=== PATIENT | male | born 2000 | race Caucasian/White ===

== ENCOUNTER → 2018-12-30 | Outpatient (CLI) | payer OTHER | LOC: EDSEX 08:20 → CARD 08:20 | PROVIDERS: ATTEND Nurse Practitioner Family | DX: R07.9 Chest pain, unspecified (principal); R06.09 Other forms of dyspnea; R00.2 Palpitations; Q24.9 Congenital malformation of heart, unspecified | CPT/HCPCS: 93225; 93226; 93306; 93351 ==

== ENCOUNTER 2021-11-13 18:43 | Emergency (ER) | payer SELFPAY ==
[~2021-11-13] VITALS: Ht 167.7 cm; Wt 99.7 kg
--- NOTE | 2021-11-13 19:02 | ED Back Pain ---
General Chief Complaint: Back Problems Stated Complaint: GROIN / BACK PAIN Source of Information: Patient Exam Limitations: No Limitations History of Present Illness Date Seen by Provider: Nov 13, 2021 Time Seen by Provider: 19:01 Initial Comments Patient is a 21-year-old male who presents ED with scrotum and bilateral flank pain. Symptoms started in his left testicle 2 days ago. Radiating to left flank and right flank. Rating pain to right groin. Reports a sharp pain constant. Frequent urination without any dysuria, hematuria. No history of kidney stones. Denies of any current scrotum pain, scrotum swelling or redness. Denies history of similar symptoms. Denies any palpable bulge. Not currently sexually active. Denies fever, chills, chest pain, shortness of breath, cough, headache, dizziness Allergies and Home Medications Patient Home Medication List Home Medication List Reviewed: Yes Review of Systems Constitutional: No see HPI, No chills, No diaphoresis EENTM: No ear pain, No vision loss, No throat pain, No throat swelling Respiratory: No cough Cardiovascular: No chest pain, No edema Gastrointestinal: abdominal pain; No diarrhea, No nausea, No vomiting Genitourinary: No discharge, No dysuria; frequency; No incontinence, No pain Musculoskeletal: No no symptoms reported; back pain; No gout, No joint pain Skin: No change in color, No change in hair/nails All Other Systems Reviewed Negative Unless Noted: Yes Past Msqnqod-Ytutbu-Fkyzdb Hx Patient Social History Tobacco Use?: No Substance use?: No Alcohol Use?: Yes Pt feels they are or have been: No Immunizations Up To Date Influenza Vaccine Up-to-Date: Yes; Up-to-Date Physical Exam Vital Signs Vital Signs - First Documented 11/13/21 18:58 Temp 36.6 Pulse 122 Resp 18 B/P (MAP) 147/82 (103) Pulse Ox 96 Capillary Refill : Height, Weight, BMI Height: '" Weight: lbs. oz. kg; BMI Method: General Appearance: No Apparent Distress, WD/WN HEENT: PERRL/EOMI, TMs Normal, Normal ENT Inspection, Pharynx Normal Neck: Full Range of Motion, Normal Inspection, Non Tender, Supple Cardiovascular: Regular Rate, Rhythm, No Edema, No Gallop, No JVD Respiratory: Chest Non Tender, Lungs Clear, Normal Breath Sounds, No Accessory Muscle Use, No Respiratory Distress Gastrointestinal: Normal Bowel Sounds, No Organomegaly, No Pulsatile Mass, Non Tender Genital/Rectal: Normal Genital Exam Back: Normal Inspection, No Vertebral Tenderness, CVA Tenderness (L), CVA Tenderness (R) Extremity: Normal Capillary Refill, Normal Inspection, Normal Range of Motion, Non Tender Neurologic/Psychiatric: Alert, Oriented x3, No Motor/Sensory Deficits, Normal Mood/Affect, 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 Norm as Tested Skin: Normal Color Progress/Results/Core Measures Results/Orders Lab Results Laboratory Tests Test 11/13/21 19:12 11/13/21 19:40 Range/Units White Blood Count 10.5 4.3-11.0 10^3/uL Red Blood Count 5.16 4.30-5.52 10^6/uL Hemoglobin 15.7 13.3-17.7 g/dL Hematocrit 47 40-54 % Mean Corpuscular Volume 90 80-99 fL Mean Corpuscular Hemoglobin 30 25-34 pg Mean Corpuscular Hemoglobin Concent 34 32-36 g/dL Red Cell Distribution Width 11.6 10.0-14.5 % Platelet Count 388 130-400 10^3/uL Mean Platelet Volume 8.9 L 9.0-12.2 fL Immature Granulocyte % (Auto) 0 % Neutrophils (%) (Auto) 62 42-75 % Lymphocytes (%) (Auto) 29 12-44 % Monocytes (%) (Auto) 8 0-12 % Eosinophils (%) (Auto) 1 0-10 % Basophils (%) (Auto) 0 0-10 % Neutrophils # (Auto) 6.6 1.8-7.8 10^3/uL Lymphocytes # (Auto) 3.0 1.0-4.0 10^3/uL Monocytes # (Auto) 0.8 0.0-1.0 10^3/uL Eosinophils # (Auto) 0.1 0.0-0.3 10^3/uL Basophils # (Auto) 0.0 0.0-0.1 10^3/uL Immature Granulocyte # (Auto) 0.0 0.0-0.1 10^3/uL Sodium Level 138 135-145 MMOL/L Potassium Level 4.0 3.6-5.0 MMOL/L Chloride Level 102 98-107 MMOL/L Carbon Dioxide Level 24 21-32 MMOL/L Anion Gap 12 5-14 MMOL/L Blood Urea Nitrogen 10 7-18 MG/DL Creatinine 0.93 0.60-1.30 MG/DL Estimat Glomerular Filtration Rate 118 BUN/Creatinine Ratio 11 Glucose Level 135 H 70-105 MG/DL Calcium Level 9.7 8.5-10.1 MG/DL Corrected Calcium 8.5-10.1 MG/DL Total Bilirubin 0.6 0.1-1.0 MG/DL Aspartate Amino Transf (AST/SGOT) 26 5-34 U/L Alanine Aminotransferase (ALT/SGPT) 60 H 0-55 U/L Alkaline Phosphatase 84 40-136 U/L Total Protein 8.2 6.4-8.2 GM/DL Albumin 4.8 H 3.2-4.5 GM/DL Lipase 18 8-78 U/L Urine Color YELLOW Urine Clarity CLEAR Urine pH 5.5 5-9 Urine Specific [place] <=1.005 1.016-1.022 Urine Protein NEGATIVE NEGATIVE Urine Glucose (UA) NEGATIVE NEGATIVE Urine Ketones NEGATIVE NEGATIVE Urine Nitrite NEGATIVE NEGATIVE Urine Bilirubin NEGATIVE NEGATIVE Urine Urobilinogen 0.2 < = 1.0 MG/DL Urine Leukocyte Esterase NEGATIVE NEGATIVE Urine RBC (Auto) 2+ H NEGATIVE Urine RBC 5-10 H /HPF Urine WBC NONE /HPF Urine Crystals PRESENT H /LPF Urine Amorphous Sediment RARE ANNMARIE URATES H /LPF Urine Bacteria NEGATIVE /HPF Urine Casts NONE /LPF Urine Mucus NEGATIVE /LPF Urine Culture Indicated NO My Orders Orders - RAQUEL MALDONADO PA Ua Culture If Indicated (11/13/21 18:55) Cbc With Automated Diff (11/13/21 19:00) Comprehensive Metabolic Panel (11/13/21 19:00) Lipase (11/13/21 19:00) Ct Abdomen/Pelvis Wo (11/13/21 19:00) Vital Signs/I&O 11/13/21 18:58 Temp 36.6 Pulse 122 Resp 18 B/P (MAP) 147/82 (103) Pulse Ox 96 Departure Communication (Admissions) Patient presents ED with bilateral flank pain and groin pain. Symptoms started last Saturday in his left groin radiating to the left flank. Pain became worse on with rating pain to the right flank and right groin. Reports frequent urination. Denies dark urine. No pain with urination. Not currently sexually active. Urinalysis positive for hematuria. Patient has no testicle or pain, swelling, erythema. Patient with normal white blood count kidney function. CT abdomen pelvis nonspecific dilation of the mid and proximal right ureter mild hydronephrosis on the right perhaps due to recently passed stone. Pyelonephritis should be clinically excluded. He has no evidence of infection in his urine. No palpable abscess. Due to the length of pain and with no scrotum tenderness unlikely testicle or torsion at this time. Possible varicocele versus orchitis/epididymitis, hydrocele. Concerning for the hematuria likely possible passed stone. He states pain appears to be improving. I do think patient would benefit with ultrasound of his testicles. This was ordered outpatient. Follows up with the [facility]. Was able to get information to his primary care physician to send the report who he will follow up with. Outpatient order for testicle ultrasound. Recommend anti- inflammatories. Return precaution were discussed Impression Primary Impression: Hematuria Disposition: 01 HOME, SELF-CARE Condition: Stable Departure-Patient Inst. Decision time for Depature: 20:39 Referrals: NO,LOCAL PHYSICIAN (PCP) Primary Care Physician CARLOS EDUARDO SCHWARTZ MD Patient Instructions: Blood in Urine (Hematuria), Adult ED Add. Discharge Instructions: Need to follow-up with your primary care physician with ultrasound. All discharge instructions reviewed with patient and/or family. Voiced understanding. Work/School Note: Work Release Form Date Seen in the Emergency Department: Nov 13, 2021 Return to Work: Nov 15, 2021 RAQUEL MALDONADO Nov 13, 2021 19:02
[2021-11-13 19:30] LABS: BASOPHILS % (AUTO) 0 % (0-10); EOSINOPHILS # (AUTO) 0.1 10^3/uL (0.0-0.3); EOSINOPHILS % (AUTO) 1 % (0-10); HEMATOCRIT 47 % (40-54); HEMOGLOBIN 15.7 g/dL (13.3-17.7); LYMPHOCYTES % (AUTO) 29 % (12-44); MEAN CORPUSCULAR HEMOGLOBIN 30 pg (25-34); MEAN CORPUSCULAR HGB CONC 34 g/dL (32-36); MEAN CORPUSCULAR VOLUME 90 fL (80-99); MEAN PLATELET VOLUME 8.9 fL (9.0-12.2); MONOCYTES # (AUTO) 0.8 10^3/uL (0.0-1.0); MONOCYTES % (AUTO) 8 % (0-12); NEUTROPHILS # (AUTO) 6.6 10^3/uL (1.8-7.8); NEUTROPHILS % (AUTO) 62 % (42-75); PLATELET COUNT 388 10^3/uL (130-400); WHITE BLOOD COUNT 10.5 10^3/uL (4.3-11.0)
[2021-11-13 19:46] LABS: BILIRUBIN,URINE NEGATIVE (NEGATIVE); CLARITY,URINE CLEAR; COLOR,URINE YELLOW; GLUCOSE, URINE (UA) NEGATIVE (NEGATIVE); KETONES,URINE NEGATIVE (NEGATIVE); LEUKOCYTE ESTERASE ,URINE NEGATIVE (NEGATIVE); NITRITE,URINE NEGATIVE (NEGATIVE); PH,URINE 5.5 (5-9); PROTEIN,URINE NEGATIVE (NEGATIVE)
[2021-11-13 19:56] LABS: ALANINE AMINOTRANSFERASE 60 U/L (0-55); ALBUMIN 4.8 GM/DL (3.2-4.5); ALKALINE PHOSPHATASE 84 U/L (40-136); BILIRUBIN,TOTAL 0.6 MG/DL (0.1-1.0); BUN/CREATININE RATIO 11; CALCIUM 9.7 MG/DL (8.5-10.1); CARBON DIOXIDE 24 MMOL/L (21-32); CHLORIDE 102 MMOL/L (98-107); CREATININE SERUM 0.93 MG/DL (0.60-1.30); GFR ESTIMATED 118; GLUCOSE 135 MG/DL (70-105); LIPASE 18 U/L (8-78); SODIUM 138 MMOL/L (135-145); TOTAL PROTEIN 8.2 GM/DL (6.4-8.2)
[2021-11-13 20:02] LABS: BACTERIA,URINE NEGATIVE /HPF
[2021-11-13 20:03] LABS: AMORPHOUS SEDIMENT,UR RARE AMOR URATES /LPF
--- NOTE | 2021-11-13 20:05 | Diagnostic Imaging Report ---
INDICATION: Testicular pain, groin pain and back pain since Saturday last week. EXAMINATION: CT abdomen and pelvis without contrast, 11/13/2021. FINDINGS: There is mild right-sided hydroureteronephrosis. This extends to involve the right ureter to its mid aspect. More distally the ureter demonstrates normal caliber with no distal obstructive process appreciated. Findings are nonspecific but perhaps due to a recently passed stone. No ureteral stone seen on the left. There is no nephrolithiasis. The remaining abdominal viscera limited due to lack of contrast with no gross abnormality appreciated in the liver, gallbladder or spleen. Adrenal glands appear unremarkable. Pancreas normal. There is postoperative change in the right lower quadrant likely due to previous appendectomy. Appendix is not seen. There is no inflammatory change about the loops of bowel. No ascites or free air. There is no lymphadenopathy. Visualized lung bases appear clear. There is no acute osseous of abnormality. Sclerotic focus in the left sacrum most likely a bone island. IMPRESSION: Nonspecific dilatation of the mid and proximal right ureter and mild hydronephrosis on the right perhaps due to a recently passed stone. Pyelonephritis should be clinically excluded. No nephrolithiasis or obstructive stone seen on either side. Other incidental findings as discussed above. Dictated by: Dictated on workstation # [id number]
[2021-11-13 21:08] VITALS: BP 133/90
== END 2021-11-13 21:07 | disposition home or self-care (01) ==
LOC: EDUNIT# 18:43 → ER 18:45
DX: R31.9 Hematuria, unspecified (principal)
CPT/HCPCS: 36415; 74176; 80053; 81000; 83690; 85025

== ENCOUNTER → 2021-11-14 | Outpatient (CLI) | payer SELFPAY ==
--- NOTE | 2021-11-14 12:59 | Diagnostic Imaging Report ---
PROCEDURE: US Scrotum. TECHNIQUE: Multiple Real-time grayscale images were obtained over the scrotum in various projections bilaterally. INDICATION: Testicular pain bilaterally. FINDINGS: The right testicle measures 4.0 x 2.1 x 2.6 cm and the left testicle measures 4.0 x 2.0 x 2.5 cm. Both testes demonstrate homogeneous echotexture. No discrete testicular mass is seen. There is normal blood flow to both testes. Epididymides are unremarkable. There is no hydrocele or varicocele identified. IMPRESSION: Unremarkable scrotal ultrasound. Dictated by: Dictated on workstation # [id number]
== END ==
LOC: RAD 11:22
PROVIDERS: ATTEND Emergency Medicine
DX: N50.812 Left testicular pain (principal); N50.811 Right testicular pain
CPT/HCPCS: 76870